=== PATIENT | female | born 1990 | race African-American/Black ===

== ENCOUNTER 2018-09-02 21:38 | Emergency (ER) | payer MEDICAID, OTHER ==
[~2018-09-02] VITALS: Ht 165.1 cm; Wt 81.6 kg
[~2018-09-02 21:38] MED LIST: DENIES HOME MEDS
[2018-09-02 22:12] VITALS: BP 121/75
[2018-09-03] MEDS ORDERED: KETOROLAC TROMETH 60MG/2ML VIAL IM ONE (01:15)
== END 2018-09-03 01:33 | disposition home or self-care (01) ==
LOC: ER 21:38
DX: G44.009 Cluster headache syndrome, unspecified, not intractable (principal); H57.12 Ocular pain, left eye
CPT/HCPCS: 96372; 99283; J1885

== ENCOUNTER 2021-07-29 11:11 | Emergency (ER) | payer MEDICAID ==
[~2021-07-29] VITALS: Ht 165.1 cm; Wt 93.0 kg
[2021-07-29 11:42] VITALS: BP 107/45
[2021-07-29 11:51] LABS: Urine Bacteria NONE SEEN /hpf (None Seen); Urine Blood 2+ /uL (Negative); Urine Specific Gravity 1.016 (1.001-1.035); Urine WBC 1 /hpf (0 - 5)
[2021-07-29 11:54] LABS: Basophils # (auto) 0 10 ^3/uL (0-0.2); Eosinophils # (auto) 0.1 10 ^3/uL (0-0.8); Monocytes # (auto) 0.5 10 ^3/uL (0-1.3)
[2021-07-29 11:56] LABS: Basophils % (auto) 0.4 % (0.0-2.0); Eosinophils % (auto) 1.2 % (0.0-7.0); Hematocrit 37.4 % (36.0-46.0); Hemoglobin 12.6 g/dL (12.2-16.2); Lymphocytes # (auto) 2.5 10 ^3/uL (0.4-5.4); Mean Corpuscular Hemoglobin 26.6 pg (28.0-32.0); Mean Corpuscular Hgb Conc. 33.8 g/dL (32.0-36.0); Mean Corpuscular Volume 78.8 fL (80.0-100.0); Monocytes % (auto) 7.6 % (0.0-12.0); Neutrophils # (auto) 3.3 10 ^3/uL (1.6-8.6); Neutrophils % (auto) 51.8 % (37.0-80.0); Nucleated Red Blood Cells % 0.1 %; Red Blood Cells 4.75 10^6/uL (4.0-5.20); Red Cell Distribution Width 14.6 % (11.8-14.3); White Blood Cell 6.3 10^3/uL (4.4-10.8)
[2021-07-29 12:15] LABS: Albumin 3.6 g/dL (3.4-5.0); Potassium 3.6 mmol/L (3.5-5.1)
[2021-07-29 12:18] LABS: BUN/Creatinine Ratio 13.6; Bilirubin, Total 0.3 mg/dL (0.2-1.0); Total Protein 7.7 g/dL (6.4-8.2)
== END 2021-07-29 14:03 | disposition home or self-care (01) ==
LOC: ER 11:11
DX: R10.9 Unspecified abdominal pain (principal); M54.50 Low back pain, unspecified; Z88.0 Allergy status to penicillin
CPT/HCPCS: 36415; 74176; 80053; 81001; 81025; 85025

== ENCOUNTER 2021-08-24 09:26 | Emergency (ER) | payer MEDICAID, OTHER ==
[~2021-08-24] VITALS: Ht 165.1 cm; Wt 90.7 kg
[2021-08-24 09:32] VITALS: BP 114/59
[2021-08-24] MEDS ORDERED: METH750T22 PO (11:05)
[2021-08-24] MEDS ORDERED: IBUP800T27 PO (11:05)
== END 2021-08-24 11:16 | disposition home or self-care (01) ==
LOC: ER 09:26
DX: S16.1XXA Strain of muscle, fascia and tendon at neck level, initial encounter (principal); S29.011A Strain of muscle and tendon of front wall of thorax, initial encounter; I10 Essential (primary) hypertension; V43.52XA Car driver injured in collision with other type car in traffic accident, initial encounter; Y93.89 Activity, other specified; Y92.89 Other specified places as the place of occurrence of the external cause; Y99.8 Other external cause status
CPT/HCPCS: 71045; 72040

== ENCOUNTER 2023-03-09 15:38 | Emergency (ER) | payer MEDICAID ==
[~2023-03-09] VITALS: Ht 157.5 cm; Wt 79.3 kg
[~2023-03-09 15:38] MED LIST changes: +IBUP-1456 PO; +METH-1182 PO
[2023-03-09 17:19] VITALS: BP 123/58; PULSE 60; RESP 16; TEMP 98.2; O2SAT 98
== END 2023-03-09 17:33 | disposition home or self-care (01) ==
LOC: ER 15:38
DX: T19.2XXA Foreign body in vulva and vagina, initial encounter (principal); I10 Essential (primary) hypertension; W44.8XXA Other foreign body entering into or through a natural orifice, initial encounter

== ENCOUNTER 2023-07-24 11:47 | Emergency (ER) | payer MEDICAID ==
[~2023-07-24] VITALS: Ht 165.1 cm; Wt 83.1 kg
[2023-07-24 14:07] LABS: Urine Bacteria FEW /hpf (None Seen); Urine Blood Negative /uL (Negative); Urine Clarity CLOUDY (Clear); Urine Mucus FEW (None Seen); Urine Protein, UAD TRACE (Negative); Urine Specific Gravity 1.016 (1.001-1.035); Urine Urobilinogen Normal (Negative); Urine WBC 129 /hpf (0 - 5)
[2023-07-24 14:08] LABS: Urine Color Straw (Yellow)
[2023-07-24 14:48] LABS: Basophils # (auto) 0.1 10 ^3/uL (0-0.2); Eosinophils # (auto) 0.1 10 ^3/uL (0-0.8); Eosinophils % (auto) 0.8 % (0.0-7.0); Hemoglobin 12.7 g/dL (12.2-16.2); Lymphocytes # (auto) 3.3 10 ^3/uL (0.4-5.4); Nucleated Red Blood Cells % 0.1 %
[2023-07-24 14:50] LABS: Basophils % (auto) 0.7 % (0.0-2.0); Mean Corpuscular Hgb Conc. 33.5 g/dL (32.0-36.0); Mean Corpuscular Volume 80.7 fL (80.0-100.0); Monocytes # (auto) 0.5 10 ^3/uL (0-1.3); Monocytes % (auto) 5.8 % (0.0-12.0); Neutrophils # (auto) 5.4 10 ^3/uL (1.6-8.6); Neutrophils % (auto) 57.7 % (37.0-80.0); Red Blood Cells 4.71 10^6/uL (4.0-5.20); Red Cell Distribution Width 14.3 % (11.8-14.3); White Blood Cell 9.3 10^3/uL (4.4-10.8)
[2023-07-24 15:09] LABS: Alanine Aminotransferase 36 U/L (7-40); Albumin 4.4 g/dL (3.2-4.8); Alkaline Phosphatase 68 U/L (46-116); Anion Gap 3 (5-15); Aspartate Aminotransferase 20 U/L (13-40); BUN/Creatinine Ratio 7.5 (10.0-20.0); Bilirubin, Total 0.2 mg/dL (0.2-1.0); Blood Urea Nitrogen 5 mg/dL (9-23); Calcium 9.7 mg/dL (8.7-10.4); Carbon Dioxide 28 mmol/L (20-30); Chloride 109 mmol/L (98-107); Glucose 91 mg/dL (74-106); Lipase 33 U/L (12-53); Potassium 3.6 mmol/L (3.5-5.1); Sodium 140 mmol/L (136-145); Total Protein 7.3 g/dL (5.7-8.2)
[2023-07-24] MEDS ORDERED: ZOFR4T PO (16:39)
[2023-07-24] MEDS ORDERED: NITR-87 PO (16:39)
[2023-07-24] MEDS ORDERED: NAPR-1335 PO (16:39)
[2023-07-24 17:19] VITALS: BP 130/70; PULSE 60; RESP 18; TEMP 98; O2SAT 99
== END 2023-07-24 17:23 | disposition home or self-care (01) ==
LOC: ER 11:47
DX: K52.9 Noninfective gastroenteritis and colitis, unspecified (principal); R10.2 Pelvic and perineal pain; N39.0 Urinary tract infection, site not specified
CPT/HCPCS: 36415; 71045; 76705; 76856; 80053; 81001; 83690; 84484; 84702; 85025